=== PATIENT | female | born 1945 | race Caucasian/White ===

== ENCOUNTER → 2017-10-13 | Outpatient (CLI) | payer MEDICARE ==
--- NOTE | 2017-10-13 14:25 | US ---
EXAMINATION TYPE: US groin LT DATE OF EXAM: 10/13/2017 COMPARISON: NONE CLINICAL HISTORY: hematoma of the groin S30.1XXA. Patient stated has palpable right groin x 3 days; h ad cardiac catheterization right groin on 10-03-17. At patient's c/o palpable at right groin is hyperechoic, complex fluid area imaged superficial to ves sels = 4.8 x 2.9 x 1.4cm. No vascularity is noted with mass. IMPRESSION: As above, area of concern likely reflects residual moderate size hematoma given patient' s history. No ultrasound evidence for pseudoaneurysm.
== END | disposition home or self-care (01) ==
LOC: RADUSWWP 10:28
PROVIDERS: ATTEND Family Medicine
DX: S30.1XXA Contusion of abdominal wall, initial encounter (principal)

== ENCOUNTER → 2022-06-10 | Outpatient (CLI) | payer MEDICARE ==
--- NOTE | 2022-06-10 14:13 | US ---
EXAMINATION TYPE: US venous doppler duplex LE LT DATE OF EXAM: 06/10/2022 1:53 PM COMPARISON: NONE CLINICAL HISTORY: 77-year-old female M79.605 lt leg pain. Left leg pain that come and goes when patie nt tries to stand and walk, no swelling, no h/o DVT SIDE PERFORMED: Left TECHNIQUE: The lower extremity deep venous system is examined utilizing real time linear array sonog terra with graded compression, doppler sonography and color-flow sonography. FINDINGS: VESSELS IMAGED: Common Femoral Vein Deep Femoral Vein Greater Saphenous Vein * Femoral Vein Popliteal Vein Small Saphenous Vein * Proximal Calf Veins Peroneal veins Posterior tibial veins (* superficial vessels) Left Leg: Negative for DVT Sonography notes: Pain at lateral calf, soft tissue scan shows no obvious abnormality IMPRESSION: No evidence for DVT within the left lower extremity. Additional targeted scanning along the lateral aspect of the calf corresponding to the site of patien t's pain shows no discrete abnormality of the superficial soft tissues.
== END | disposition home or self-care (01) ==
LOC: RADUSWWP 13:04
PROVIDERS: ATTEND Pediatrics
DX: M79.605 Pain in left leg (principal)